=== PATIENT | female | born 1950 ===

== ENCOUNTER 2024-01-04 08:40 | Outpatient (CLI) | payer MEDICARE, SELFPAY ==
--- NOTE | 2024-01-19 19:44 | WPDSLEEPSTUD ---
Sleep Study Date of Study: 01/04/24 Ordering Provider: Shreya Garcia Interpreting Physician: Jasmyne Mares MD Sleep Study Type: Polysomnogram Height: 1.57 m Weight: 78.925 kg Body Mass Index: 31.8 Neck Circumference (inches): 14 [place]: 14 Reason for Sleep Study Document opened in error. Please see completed report 01/22/24.
[2024-01-22 14:50] VITALS: BMI 31.8
--- NOTE | 2024-01-22 14:50 | WPDSLEEPSTUD ---
Sleep Study Date of Study: 01/04/24 Ordering Provider: Shreya Garcia Interpreting Physician: Anahy Healy DO Sleep Study Type: Polysomnogram Height: 1.57 m Weight: 78.925 kg Body Mass Index: 31.8 Neck Circumference (inches): 14 [place]: 14 Reason for Sleep Study Insomnia HSAT at [facility] on 06/19/2020 showed an overall AHI of 7.5 with desaturation down to 88%. Failed mandibular advancement device. Did not try CPAP due to claustrophobia. Sleep History The patient is a 73-year-old female with hypertension, COPD, pulmonary hypertension, GERD, hyperlipidemia, depression, chronic back pain and previously diagnosed sleep apnea that had a sleep study ordered for evaluation for [employer]. The patient denies awakening from sleep short of breath. She occasionally awakens at night with heartburn, belching or cough. She frequently snores. She denies having trouble sleeping when she has a cold. She denies waking up gasping for air throughout the night. She denies having breathing problems at night observed by herself or others. She denies sweating excessively at night. She denies having heart palpitations or irregular heartbeats during the night. She frequently falls asleep during the day but rarely while driving. She denies sleep paralysis and cataplexy. She rarely experiences vivid dreamlike scenes upon awakening or falling asleep. She denies feeling afraid of going to sleep. She denies having nightmares. She rarely remembers her dreams. She constantly has thoughts racing through her mind. She occasionally feels sad or depressed. She frequently has anxiety. She denies having muscular tension. She denies noticing parts of her body jerk. She denies kicking during the night. She occasionally has crawling and aching feelings in her legs and occasionally has leg pain during the night. She denies grinding her teeth during sleep and denies awakening with morning jaw pain. She is constantly bothered by pain during the day and frequently awakened by pain during the night. She is frequently waking up feeling stiff in the morning. She occasionally wakes up with sore or achy muscles. She occasionally wakes up with pain in her spine and joints. She goes to bed between 2-3 a.m. on both weekdays and weekends. It takes her 30-60 minutes to fall asleep. She wakes up 1-2 times throughout the night to urinate and is sometimes unable to fall back asleep. She wakes up between 7-9 a.m. on both weekdays and weekends. She typically gets 4 hours of sleep at most per night. She will stay in bed for a few minutes after waking up in the morning. She currently lives with her . She denies consuming any caffeinated beverages within 2 hours of bedtime. She denies engaging in physical exercise before bedtime. She will watch television before falling asleep. She will take naps in the afternoon or the evening. She consumes 1-2 cups of caffeinated beverage per day. She currently smokes about 1 pack of cigarettes per day. She denies alcohol and recreational drug Sleep Procedure A full night polysomnogram using the [employer] multi-channel system recorded the standard physiologic parameters including EEG, EOG, submentalis EMG, anterior tibialis EMG, EKG, body position, nasal and oral airflow using nasal pressure sensor and thermistor.? Respiratory parameters of chest and abdominal movements were recorded with Respiratory Inductance Plethysmography belts. Oxygen saturation was recorded by pulse oximetry. Video monitoring was also performed. Sleep stages, periodic limb movements, and EEG arousals were scored in 30 second epochs according to the criteria of the AASM Scoring Manual. The Apnea-Hypopnea Index was calculated using CMS guidelines for definition of hypopnea with 4% O2 desaturations while scoring respiratory events. Sleep Architecture The total recording time was 455.8 minutes.? The total sleep time was 397.5 minutes. Slee
== END 2024-01-05 07:08 | disposition home or self-care (01) ==
LOC: ANHCSM 08:42
PROVIDERS: PCP Internal Medicine
DX: G47.30 Sleep apnea, unspecified (principal)
CPT/HCPCS: 95810